=== PATIENT | female | born 1985 | race Two or more races ===

== ENCOUNTER 2016-10-18 14:59 | Emergency (ER) | payer MEDICAID, OTHER ==
[2016-10-18 15:14] VITALS: RESP 16; TEMP 98.4
[2016-10-18] MEDS ORDERED: NS 1,000 ML IV ONE (15:45)
--- NOTE | 2016-10-18 15:49 | EDPHY ---
HPI/HX/ROS/PE/MDM Narrative: CHIEF COMPLAINT: Vaginal bleeding, six weeks . HPI: This is a 31-year-old female 6 weeks by dates (LMP 09/06/2016 ) presenting via private vehicle. She has had vaginal bleeding since last night. She admits associated mild abdominal pain. She denies dizziness, lightheadedness, dysuria, or other complaints. Her other pregnancies were uncomplicated. History obtained via Icelandic speech language pathology assistant at bedside. REVIEW OF SYSTEMS: Aside from elements discussed in the HPI, a comprehensive 10-point review of systems was reviewed and is negative. PMH: Denies. SOCIAL HISTORY: Mother. PHYSICAL EXAM: General:Patient is alert, in no acute distress. ENT:Eyes are normal to inspection. ENT inspection normal. Neck: Normal inspection. Full range of motion. Respiratory:No respiratory distress. Breath sounds normal bilaterally. Cardiovascular: Regular rate and rhythm. Strong peripheral pulses. Normal cap refill. Abdomen:The abdomen is nontender to palpation. There are no peritoneal signs. There are normal bowel sounds. Back: Normal to inspection. No tenderness to palpation. Skin: Normal color. No rash. Warm and dry. Extremities: Normal appearance. Full range of motion. Neuro: Oriented x3. Normal motor function. Normal sensory function. ED Course: An IV was established and labs ordered. Obstetrics ultrasound ordered. Patient's CBC unremarkable. Her beta HCG quantitative is low at 2.39, a negative reading. Study: Obstetrics ultrasound. Indication: Bleeding during . Results: Normal ovaries and uterus. The study was read by the radiologist, Dr. Florence. I viewed the images myself on the PACS system. 1800: Reassessed patient. I informed her she is not . She understands to follow up with her primary care provider this week. I answered all of her questions. She is comfortable with the plan. MDM: This patient presents with vaginal bleeding in the setting of a home test that was positive. Her quantitative beta HCG here in the emergency department is completely negative and ultrasound shows no signs of either. I did this represents delayed presentation of very early spontaneous that is now complete, or more likely, the patient was not actually and this represents her normal menstrual. Either way, she will benefit from outpatient follow-up with her OBGYN. As she is not actually , I do not think RhoGAM is indicated, and the patient is Rh positive regardless. - Data Points Laboratory Results: Laboratory Results 10/18/16 15:55 10/18/16 15:55 10/18/16 10/18/16 10/18/16 15:55 15:55 15:55 WBC 9.02 10^3/uL 10^3/uL (3.80-9.50) RBC 4.46 10^6/uL 10^6/uL (4.18-5.33) Hgb 14.5 g/dL g/dL (12.6-16.3) Hct 42.1 % % (38.0-47.0) MCV 94.4 fL fL (81.5-99.8) MCH 32.5 pg pg (27.9-34.1) MCHC 34.4 g/dL g/dL (32.4-36.7) RDW 12.0 % % (11.5-15.2) Plt Count 264 10^3/uL 10^3/uL (150-400) MPV 10.7 fL fL (8.7-11.7) Neut % (Auto) 65.5 % % (39.3-74.2) Lymph % (Auto) 26.1 % % (15.0-45.0) [place] % (Auto) 5.5 % % (4.5-13.0) Eos % (Auto) 2.3 % % (0.6-7.6) Baso % (Auto) 0.4 % % (0.3-1.7) Nucleat RBC Rel Count 0.0 % % (0.0-0.2) Absolute Neuts (auto) 5.90 10^3/uL 10^3/uL (1.70-6.50) Absolute Lymphs (auto) 2.35 10^3/uL 10^3/uL (1.00-3.00) Absolute Monos (auto) 0.50 10^3/uL 10^3/uL (0.30-0.80) Absolute Eos (auto) 0.21 10^3/uL 10^3/uL (0.03-0.40) Absolute Basos (auto) 0.04 10^3/uL 10^3/uL (0.02-0.10) Absolute Nucleated RBC 0.00 10^3/uL 10^3/uL (0-0.01) Immature Gran % 0.2 % % (0.0-1.1) Immature Gran # 0.02 10^3/uL 10^3/uL (0.00-0.10) Sodium 138 mEq/L mEq/L (134-144) Potassium 3.7 mEq/L mEq/L (3.5-5.2) Chloride 105 mEq/L mEq/L (97-110) Carbon Dioxide 23 mEq/l mEq/l (22-31) Anion Gap 10 mEq/L mEq/L (8-16) BUN 20 mg/dL mg/dL (7-23) Creatinine 0.6 mg/dL mg/dL (0.6-1.0) Estimated GFR > 60 Glucose 102 mg/dL H mg/dL (70-100) Calcium 9.4 mg/dL mg/dL (8.5-10.4) Beta HCG, Quant < 2.39 mIU/mL mIU/mL (0-4.83) Patient ABO/Rh A POSITIVE Medications Given: Discontinued Medications Sodium Chloride (Ns) 1,000 mls @ 0 mls/hr IV ONCE ONE PRN Reason: Wide Open Stop: 10/18/16 15:46 Last Admin: 10/18/16 16:01 Dose: 1,000 mls General Time Seen by Provider: 10/18/16 15:44 Initial Vital Signs: Initial Vital Signs Temperature (C) 36.9 C 10/18/16 15:05 Heart Rate 76 10/18/16 15:05 Respiratory Rate 16 10/18/16 15:05 Blood Pressure 105/64 10/18/16 15:05 O2 Sat (%) 96 10/18/16 15:05 O2 Delivery Mode Room Air Allergies/Adverse Reactions: No Known Allergies Allergy (Verified 10/18/16 15:08) Home Medications: Medication Instructions Recorded NK [No Known Home Meds] 10/18/16 Departure - Departure Disposition: Home, Routine, Self-Care Clinical Impression: Vaginal bleeding Condition: Good Instructions: Dysfunctional Uterine Bleeding (ED) Additional Instructions: Call your primary care provider tomorrow to set up a follow up appointment. Return to the emergency department if you experience serious worsening of condition. Llame a khan proveedor de atencion primaria manana para hacer km randolph de seguimiento. Regrese al departamento de emergencia si experimenta un grave empeoramiento de khan condicion. Referrals: [facility],. [Primary Care Provider] - As per Instructions Print Language: Icelandic Report Scribed for: Medhat Clark Report Scribed by: Pete Dai Date of Report: 10/18/16 Time of Report: 15:49 Physician Review and Approval Statement: Portions of this note were transcribed by a medical consultant. I personally performed a history, physical exam, medical decision making, and confirmed accuracy of information the transcribed note.
[2016-10-18 16:05] LABS: % IMMATURE GRANULYOCYTES 0.2 % (0.0-1.1); ABSOLUTE IMMATURE GRANULOCYTES 0.02 10^3/uL (0.00-0.10); ADD DIFF? NO; ADD MORPH? NO; ADD SCAN? NO; ATYPICAL LYMPHOCYTE FLAG 0 (0-99); FRAGMENT RBC FLAG 0 (0-99); HEMATOCRIT 42.1 % (38.0-47.0); HEMOGLOBIN 14.5 g/dL (12.6-16.3); LEFT SHIFT FLG 0 (0-99); LIPEMIA HEMOLYSIS FLAG 90 (0-99); MEAN CELL HEMOGLOBIN 32.5 pg (27.9-34.1); MEAN CELL HEMOGLOBIN CONCENTR. 34.4 g/dL (32.4-36.7); MEAN CELL VOLUME 94.4 fL (81.5-99.8); MEAN PLATELET VOLUME 10.7 fL (8.7-11.7); PLATELET CLUMPS FLAG 0 (0-99); PLATELET COUNT 264 10^3/uL (150-400); RED BLOOD CELL COUNT 4.46 10^6/uL (4.18-5.33)
[2016-10-18 16:17] LABS: ANION GAP 10 mEq/L (8-16); CALCIUM 9.4 mg/dL (8.5-10.4); CARBON DIOXIDE 23 mEq/l (22-31); CHLORIDE 105 mEq/L (97-110); CREATININE 0.6 mg/dL (0.6-1.0); GLOMERULAR FILTRATION RATE > 60; GLUCOSE 102 mg/dL (70-100); POTASSIUM 3.7 mEq/L (3.5-5.2); SODIUM 138 mEq/L (134-144)
[2016-10-18 18:04] VITALS: BP 107/61; PULSE 73; O2SAT 97
== END 2016-10-18 17:58 | disposition home or self-care (01) ==
DX: O20.8 Other hemorrhage in early pregnancy (principal); Z3A.01 Less than 8 weeks gestation of pregnancy

== ENCOUNTER 2017-04-28 18:15 | Emergency (ER) | payer OTHER ==
[2017-04-28 18:24] VITALS: TEMP 98.1
--- NOTE | 2017-04-28 18:32 | EDPHY ---
H & P Stated Complaint: 14 WK /TODAY HAD EPIGASTRIC PAIN/"EMPTY HOLE" NAUSEA POST EATING TA Time Seen by Provider: 04/28/17 18:25 HPI/ROS: CHIEF COMPLAINT: Epigastric and left upper quadrant abdominal pain, 14 weeks HISTORY OF PRESENT ILLNESS: 31-year-old female currently 14 weeks , followed by [facility] return to services, complaining of 24 hours of left upper quadrant and epigastric discomfort feels "like an empty hole " in this location. States that she feels hungry but also is experiencing nausea. Patient has had ultrasonographic confirmation of intrauterine . No history of IVF. No vomiting. No lower abdominal discomfort. No vaginal bleeding or discharge. No urinary complaints. No back or flank pain. No abdominal or other trauma. No fever or chills. Bowel movements have been normal with no melena or hematochezia. No diarrhea. PRIMARY CARE PROVIDER: the [facility] REVIEW OF SYSTEMS: A ten point review of systems was performed and is negative with the exception of the items mentioned in the HPI PAST MEDICAL & SURGICAL HISTORY: currently 14 weeks SOCIAL HISTORY: nonsmoker PHYSICAL EXAM (Prior to examination, patient consented to physical exam, hands were washed and my usual and customary physical exam procedures followed) 1) GENERAL: Well-developed, well-nourished, alert and oriented. Appears to be in no acute distress. Smiling, shakes my hand 2) HEAD: Normocephalic, atraumatic 3) HEENT: Pupils equal, round, reactive to light bilaterally. Sclera anicteric. Nasopharynx, oropharynx, clear, no lesions. Moist mucous membranes 4) NECK: Full range of motion, no meningeal signs. 5) LUNGS: Clear auscultation bilaterally, no wheezes, no rhonchi, no retractions. 6) HEART: Regular rate and rhythm, no murmur, no heave, no gallop. 7) ABDOMEN: No guarding, tender to palpation epigastrium. negative McBurney's, negative Navarro's, negative Rovsing's, negative peritoneal sign, 8) MUSCULOSKELETAL: Moving all extremities, no focal areas of tenderness, no obvious trauma. No peripheral edema or discoloration. 9) BACK: No CVA tenderness, no midline vertebral tenderness, no fluctuance, no step-off, no obvious trauma, no visual or palpable abnormality. 10) SKIN: No rash, no petechiae. 11) Psychiatric: Patient is oriented X 3, there is no agitation. DIFFERENTIAL DIAGNOSIS: In no particular order, including but not limited to biliary colic, cholecystitis, peptic ulcer disease, pancreatitis, and gastroenteritis. This is a partial list of diagnoses considered. These considerations are based on history, physical exam, past history and reassessment. - Personal History LMP (Females 10-55): Current Tetanus/Diphtheria Vaccine: Yes - Medical/Surgical History Hx Asthma: No Hx Chronic Respiratory Disease: No Hx Diabetes: No Hx Cardiac Disease: No Hx Renal Disease: No Hx Cirrhosis: No Hx Alcoholism: No Hx HIV/AIDS: No Hx Splenectomy or Spleen Trauma: No Other PMH: LMP 09/06/16. - Social History Smoking Status: Never smoked Constitutional: Initial Vital Signs Temperature (C) 36.7 C 04/28/17 18:19 Heart Rate 92 04/28/17 18:19 Respiratory Rate 18 04/28/17 18:19 Blood Pressure 119/65 04/28/17 18:19 O2 Sat (%) 98 04/28/17 18:19 O2 Delivery Mode Room Air Allergies/Adverse Reactions: No Known Allergies Allergy (Verified 04/28/17 18:19) Home Medications: Medication Instructions Recorded Famotidine [Pepcid] 40 mg PO Q6 #30 tablet 04/28/17 04/28/17 Medical Decision Making - Diagnostics Imaging Results: Imaging Impressions Obstetrics Ultrasound 04/28/17 18:33 Impression: 1. Viable intrauterine gestation in transverse lie at 15 weeks 1 day. Size is consistent with dates. 2. Normal visualized anatomy. 3. Marginal placenta previa. This should be followed to ensure superior migration as the uterus gross in size. Results called and discussed with Hue Cordoba at 04/28/2017 20:04 Imaging: Discussed imaging studies w/ weight caller Radiologist ED Course/Re-evaluation: 8:24 p.m.: Patient re-evaluated, she is feeling improvement after GI cocktail states that she is "totally better ". Re-evaluated her abdomen which remained soft no guarding no McBurney's point pain negative Navarro's, still mildly tender to palpation midline epigastrium. Doubt acute pancreatitis. Doubt acute appendicitis in the absence of right lower quadrant abdominal pain. We reviewed her diagnostic studies including her - Data Points Laboratory Results: Laboratory Results 04/28/17 18:37 04/28/17 18:37 04/28/17 04/28/17 04/28/17 18:37 18:37 18:35 WBC 10.55 10^3/uL H 10^3/uL (3.80-9.50) RBC 4.28 10^6/uL 10^6/uL (4.18-5.33) Hgb 14.0 g/dL g/dL (12.6-16.3) Hct 39.7 % % (38.0-47.0) MCV 92.8 fL fL (81.5-99.8) MCH 32.7 pg pg (27.9-34.1) MCHC 35.3 g/dL g/dL (32.4-36.7) RDW 12.4 % % (11.5-15.2) Plt Count 241 10^3/uL 10^3/uL (150-400) MPV 10.9 fL fL (8.7-11.7) Neut % (Auto) 73.4 % % (39.3-74.2) Lymph % (Auto) 17.1 % % (15.0-45.0) [place] % (Auto) 6.6 % % (4.5-13.0) Eos % (Auto) 2.3 % % (0.6-7.6) Baso % (Auto) 0.2 % L % (0.3-1.7) Nucleat RBC Rel Count 0.0 % % (0.0-0.2) Absolute Neuts (auto) 7.75 10^3/uL H 10^3/uL (1.70-6.50) Absolute Lymphs (auto) 1.80 10^3/uL 10^3/uL (1.00-3.00) Absolute Monos (auto) 0.70 10^3/uL 10^3/uL (0.30-0.80) Absolute Eos (auto) 0.24 10^3/uL 10^3/uL (0.03-0.40) Absolute Basos (auto) 0.02 10^3/uL 10^3/uL (0.02-0.10) Absolute Nucleated RBC 0.00 10^3/uL 10^3/uL (0-0.01) Immature Gran % 0.4 % % (0.0-1.1) Immature Gran # 0.04 10^3/uL 10^3/uL (0.00-0.10) Sodium 135 mEq/L mEq/L (134-144) Potassium 4.0 mEq/L mEq/L (3.5-5.2) Chloride 101 mEq/L mEq/L (97-110) Carbon Dioxide 21 mEq/l L mEq/l (22-31) Anion Gap 13 mEq/L mEq/L (8-16) BUN 12 mg/dL mg/dL (7-23) Creatinine 0.6 mg/dL mg/dL (0.6-1.0) Estimated GFR > 60 Glucose 74 mg/dL mg/dL (70-100) Calcium 9.7 mg/dL mg/dL (8.5-10.4) Total Bilirubin 0.7 mg/dL mg/dL (0.1-1.4) Conjugated Bilirubin 0.1 mg/dL mg/dL (0.0-0.5) Unconjugated Bilirubin 0.6 mg/dL mg/dL (0.0-1.1) AST 23 IU/L IU/L (14-46) ALT 29 IU/L IU/L (9-52) Alkaline Phosphatase 47 IU/L IU/L (38-126) Total Protein 7.5 g/dL g/dL (6.3-8.2) Albumin 4.2 g/dL g/dL (3.5-5.0) Lipase 132 IU/L IU/L (23-300) Beta HCG, Quant 03264.00 mIU/mL H mIU/mL (0.00-4.83) Urine Color YELLOW Urine Appearance HAZY Urine pH 6.0 (5.0-7.5) Ur Specific [place] 1.019 (1.002-1.030) Urine Protein NEGATIVE (NEGATIVE) Urine Ketones NEGATIVE (NEGATIVE) Urine Blood 1+ H (NEGATIVE) Urine Nitrate NEGATIVE (NEGATIVE) Urine Bilirubin NEGATIVE (NEGATIVE) Urine Urobilinogen NEGATIVE EU EU (0.2-1.0) Ur Leukocyte Esterase NEGATIVE (NEGATIVE) Urine RBC 5-10 /hpf H /hpf (0-3) Urine WBC 1-3 /hpf /hpf (0-3) Ur Epithelial Cells TRACE /lpf /lpf (NONE-1+) Urine Mucus TRACE /lpf /lpf (NONE-1+) Urine Glucose NEGATIVE (NEGATIVE) Medications Given: Discontinued Medications Al Hydroxide/Mg Hydroxide (Maalox Susp) 30 ml PO ONCE ONE Stop: 04/28/17 19:15 Last Admin: 04/28/17 19:25 Dose: 30 ml Hyoscyamine Sulfate (Levsin, Hyomax-Sl) 0.25 mg PO ONCE ONE Stop: 04/28/17 19:15 Last Admin: 04/28/17 19:26 Dose: 0.25 mg Lidocaine (Lidocaine 2% Viscous) 15 ml PO ONCE ONE Stop: 04/28/17 19:15 Last Admin: 04/28/17 19:26 Dose: 15 ml Departure - Departure Disposition: Home, Routine, Self-Care Clinical Impression: Epigastric abdominal pain Condition: Good Instructions: Epigastric Pain (ED) Additional Instructions: Return to the emergency department immediately if you develop lower abdominal pain, if you develop nausea or vomiting, vaginal bleeding or any other symptoms that concern you. Volver al servicio de urgencias inmediatamente si desarrolla dolor abdominal m s bajo, si se presentan nuseas o vmitos, sangrado vaginal o cualquier otro s ntoma que le conciernen. [facility]errals: [facility] [Other] - 1 day without fail Prescriptions: Famotidine [Pepcid] 40 mg PO Q6 #30 tablet Print Language: Slovak
[2017-04-28 18:43] LABS: COLOR YELLOW; LEUKOCYTE ESTERASE,URINE NEGATIVE (NEGATIVE); NITRITE,URINE NEGATIVE (NEGATIVE)
[2017-04-28 18:46] LABS: MUCUS TRACE /lpf (NONE-1+)
[2017-04-28 18:47] LABS: % IMMATURE GRANULYOCYTES 0.4 % (0.0-1.1); ABSOLUTE IMMATURE GRANULOCYTES 0.04 10^3/uL (0.00-0.10); ADD DIFF? NO; ADD MORPH? NO; ADD SCAN? NO; ATYPICAL LYMPHOCYTE FLAG 0 (0-99); FRAGMENT RBC FLAG 0 (0-99); HEMATOCRIT 39.7 % (38.0-47.0); LEFT SHIFT FLG 0 (0-99); LIPEMIA HEMOLYSIS FLAG 90 (0-99); MEAN CELL HEMOGLOBIN 32.7 pg (27.9-34.1); MEAN CELL HEMOGLOBIN CONCENTR. 35.3 g/dL (32.4-36.7); MEAN CELL VOLUME 92.8 fL (81.5-99.8); MEAN PLATELET VOLUME 10.9 fL (8.7-11.7); PLATELET CLUMPS FLAG 0 (0-99); PLATELET COUNT 241 10^3/uL (150-400); RED BLOOD CELL COUNT 4.28 10^6/uL (4.18-5.33); RED CELL DISTRIBUTION WIDTH 12.4 % (11.5-15.2)
[2017-04-28 18:59] LABS: ALANINE AMINOTRANSFERASE 29 IU/L (9-52); ALBUMIN 4.2 g/dL (3.5-5.0); ALKALINE PHOSPHATASE 47 IU/L (38-126); ANION GAP 13 mEq/L (8-16); ASPARTATE AMINOTRANSFERASE 23 IU/L (14-46); BILIRUBIN,TOTAL 0.7 mg/dL (0.1-1.4); BILIRUBIN-CONJUGATED 0.1 mg/dL (0.0-0.5); BILIRUBIN-UNCONJUGATED 0.6 mg/dL (0.0-1.1); CALCIUM 9.7 mg/dL (8.5-10.4); CARBON DIOXIDE 21 mEq/l (22-31); CHLORIDE 101 mEq/L (97-110); CREATININE 0.6 mg/dL (0.6-1.0); GLOMERULAR FILTRATION RATE > 60; GLUCOSE 74 mg/dL (70-100); SODIUM 135 mEq/L (134-144); TOTAL PROTEIN 7.5 g/dL (6.3-8.2)
[2017-04-28] MEDS ORDERED: MAG HYDROX/AL HYDROX/SIMETH 30 ML UDCUP PO ONE (19:14)
[2017-04-28] MEDS ORDERED: LIDOCAINE 2% VISCOUS 15 ML UDCUP PO ONE (19:14)
[2017-04-28] MEDS ORDERED: HYOSCYAMINE SULFATE 0.125 MG TAB PO ONE (19:14)
[2017-04-28 20:53] VITALS: BP 98/62; PULSE 75; RESP 16; O2SAT 96
== END 2017-04-28 20:52 | disposition home or self-care (01) ==
DX: O26.892 Other specified pregnancy related conditions, second trimester (principal); R10.13 Epigastric pain; Z3A.15 15 weeks gestation of pregnancy

== ENCOUNTER 2018-04-24 19:46 | Observation (INO) | payer MEDICAID, OTHER ==
--- NOTE | 2018-04-24 20:33 | EDPHY ---
H & P Stated Complaint: lower abd pain x 16 hr Time Seen by Provider: 04/24/18 20:18 HPI/ROS: CHIEF COMPLAINT: Lower abdominal pain since this morning HISTORY OF PRESENT ILLNESS: 32-year-old female complaining of lower abdominal pain since this morning with no nausea or vomiting. No fever or chills. No radiation pain. No trauma. No dysuria no hematuria increased frequency. Currently on her menstrual period, started spotting a few days ago. REVIEW OF SYSTEMS: A ten point review of systems was performed and is negative with the exception of the items mentioned in the HPI PAST MEDICAL & SURGICAL HISTORY: No history of abdominal surgeries. 6 months . IUD in place place 2 months ago. SOCIAL HISTORY:Nonsmoker PHYSICAL EXAM (Prior to examination, patient consented to physical exam, hands were washed and my usual and customary physical exam procedures followed) 1) GENERAL: Well-developed, well-nourished, alert and oriented. Appears to be in no acute distress. 2) HEAD: Normocephalic, atraumatic 3) HEENT: Pupils equal, round, reactive to light bilaterally. Sclera anicteric. Nasopharynx, oropharynx, clear, no lesions. Moist Mucous membranes. Ears bilaterally with normal tympanic membranes. 4) NECK: Full range of motion, no meningeal signs. 5) LUNGS: Clear auscultation bilaterally, no wheezes, no rhonchi, no retractions. 6) HEART: Regular rate and rhythm, no murmur, no heave, no gallop. 7) ABDOMEN: No guarding, tender to palpation suprapubic region, negative McBurney's, negative Navarro's, negative Rovsing's, negative peritoneal sign, 8) MUSCULOSKELETAL: Moving all extremities, no focal areas of tenderness, no obvious trauma. No peripheral edema or discoloration. 9) BACK: No CVA tenderness, no midline vertebral tenderness, no fluctuance, no step-off, no obvious trauma, no visual or palpable abnormality. 10) SKIN: No rash, no petechiae. 11) Psychiatric: Patient is oriented X 3, there is no agitation. DIFFERENTIAL DIAGNOSIS: My differential diagnosis includes, but is not limited to, acute appendicitis, acute cholecystitis, bowel obstruction, acute pancreatitis, ovarian torsion, ectopic , gastritis and urinary tract infection. The patient understands that this diagnosis is provisional and can never be 100% accurate. This is a partial list of diagnoses considered. These considerations are based on history, physical exam, past history and reassessment. - Personal History LMP (Females 10-55): Now Current Tetanus/Diphtheria Vaccine: Yes Current Tetanus Diphtheria and Acellular Pertussis (TDAP): Yes - Medical/Surgical History Hx Asthma: No Hx Chronic Respiratory Disease: No Hx Diabetes: No Hx Cardiac Disease: No Hx Renal Disease: No Hx Cirrhosis: No Hx Alcoholism: No Hx HIV/AIDS: No Hx Splenectomy or Spleen Trauma: No Other PMH: LMP 09/06/16. - Social History Smoking Status: Never smoked Constitutional: Initial Vital Signs Temperature (C) 36.7 C 04/24/18 19:55 Heart Rate 83 04/24/18 19:55 Respiratory Rate 18 04/24/18 19:55 Blood Pressure 90/61 L 04/24/18 19:55 O2 Sat (%) 95 04/24/18 19:55 O2 Delivery Mode Room Air Allergies/Adverse Reactions: No Known Allergies Allergy (Verified 04/28/17 18:19) Home Medications: Medication Instructions Recorded 04/28/17 Medical Decision Making - Diagnostics Imaging Results: Imaging Impressions Abdomen Ultrasound 04/24/18 20:33 Impression: Nonvisualization of the appendix. Prominent free fluid. 2. OB Sonogram, Early, 9:22 PM History: Abdominal and pelvic pain Technique: Transabdominal and transvaginal scanning is performed. Transvaginal scanning is added to better evaluate the intrauterine contents and adnexa. Spectral and color Doppler analysis is performed to evaluate the ovaries for torsion or vascular masses. Findings: There is a moderate amount of free fluid in the pelvis. Fluid has low level echoes within it, possibly representing hemorrhage. There is an IUD in the endometrial cavity. There is a tiny endometrial cyst. There is a complex left adnexal mass measuring 8 x 7.5 x 7.5 cm. This mass has relatively increased internal vascularity with a low resistance. The right ovary is normal and unremarkable with normal blood flow.. Impression: Suspicious for a left ectopic , possibly ruptured. Results discussed with Yaya Cordoba at 10:00 PM. Obstetrics Ultrasound 04/24/18 20:33 Impression: Nonvisualization of the appendix. Prominent free fluid. 2. OB Sonogram, Early, 9:22 PM History: Abdominal and pelvic pain Technique: Transabdominal and transvaginal scanning is performed. Transvaginal scanning is added to better evaluate the intrauterine contents and adnexa. Spectral and color Doppler analysis is performed to evaluate the ovaries for torsion or vascular masses. Findings: There is a moderate amount of free fluid in the pelvis. Fluid has low level echoes within it, possibly representing hemorrhage. There is an IUD in the endometrial cavity. There is a tiny endometrial cyst. There is a complex left adnexal mass measuring 8 x 7.5 x 7.5 cm. This mass has relatively increased internal vascularity with a low resistance. The right ovary is normal and unremarkable with normal blood flow.. Impression: Suspicious for a left ectopic , possibly ruptured. Results discussed with Yaya Cordoba at 10:00 PM. ED Course/Re-evaluation: 8:30 p.m.: Focal tenderness to palpation lower abdomen. Will obtain diagnostic studies. I saw this patient independently based on established practice protocols. Care of patient under supervision of secondary supervising physician Dr Chau woman with whom I discussed case 9:40 p.m.: Patient's test is positive. Will obtain quantitative HCG. She last ate at 5:00 p.m.. . 10:03 p.m.: Phone call from radiologist at this time, more than likely ruptured ectopic . Will contact OBGYN 10:12 p.m.: Consultation Dr. Bere Haskins who will will come to the hospital to evaluate patient 10:31 p.m.: Dr. Haskins in the ER to evaluate patient - Data Points Laboratory Results: Laboratory Results 04/24/18 20:17 04/24/18 20:17 04/24/18 04/24/18 04/24/18 20:20 20:17 20:17 WBC RBC Hgb Hct MCV MCH MCHC RDW Plt Count MPV Neut % (Auto) Lymph % (Auto) [place] % (Auto) Eos % (Auto) Baso % (Auto) Nucleat RBC Rel Count Absolute Neuts (auto) Absolute Lymphs (auto) Absolute Monos (auto) Absolute Eos (auto) Absolute Basos (auto) Absolute Nucleated RBC Immature Gran % Immature Gran # PT 12.6 SEC SEC (12.0-15.0) INR 0.92 (0.83-1.16) APTT 25.2 SEC SEC (23.0-38.0) Sodium Potassium Chloride Carbon Dioxide Anion Gap BUN Creatinine Estimated GFR Glucose Calcium Total Bilirubin Conjugated Bilirubin Unconjugated Bilirubin AST ALT Alkaline Phosphatase Total Protein Albumin Lipase Beta HCG, Qual Beta HCG, Quant 785.45 mIU/mL H mIU/mL (0.00-4.83) Urine Color YELLOW Urine Appearance TURBID Urine pH 5.0 (5.0-7.5) Ur Specific [place] > 1.035 H (1.002-1.030) Urine Protein 2+ H (NEGATIVE) Urine Ketones NEGATIVE (NEGATIVE) Urine Blood 3+ H (NEGATIVE) Urine Nitrate NEGATIVE (NEGATIVE) Urine Bilirubin NEGATIVE (NEGATIVE) Urine Urobilinogen 2.0 EU H EU (0.2-1.0) Ur Leukocyte Esterase NEGATIVE (NEGATIVE) Urine RBC 25-50 /hpf H /hpf (0-3) Urine WBC 3-5 /hpf H /hpf (0-3) Ur Epithelial Cells 2+ /lpf H /lpf (NONE-1+) Urine Mucus 4+ /lpf H /lpf (NONE-1+) Urine Glucose NEGATIVE (NEGATIVE) 04/24/18 04/24/18 04/24/18 20:17 20:17 20:17 WBC 9.58 10^3/uL H 10^3/uL (3.80-9.50) RBC 3.98 10^6/uL L 10^6/uL (4.18-5.33) Hgb 12.6 g/dL g/dL (12.6-16.3) Hct 36.9 % L % (38.0-47.0) MCV 92.7 fL fL (81.5-99.8) MCH 31.7 pg pg (27.9-34.1) MCHC 34.1 g/dL g/dL (32.4-36.7) RDW 12.4 % % (11.5-15.2) Plt Count 241 10^3/uL 10^3/uL (150-400) MPV 10.6 fL fL (8.7-11.7) Neut % (Auto) 68.9 % % (39.3-74.2) Lymph % (Auto) 20.7 % % (15.0-45.0) [place] % (Auto) 7.7 % % (4.5-13.0) Eos % (Auto) 2.1 % % (0.6-7.6) Baso % (Auto) 0.3 % % (0.3-1.7) Nucleat RBC Rel Count 0.0 % % (0.0-0.2) Absolute Neuts (auto) 6.60 10^3/uL H 10^3/uL (1.70-6.50) Absolute Lymphs (auto) 1.98 10^3/uL 10^3/uL (1.00-3.00) Absolute Monos (auto) 0.74 10^3/uL 10^3/uL (0.30-0.80) Absolute Eos (auto) 0.20 10^3/uL 10^3/uL (0.03-0.40) Absolute Basos (auto) 0.03 10^3/uL 10^3/uL (0.02-0.10) Absolute Nucleated RBC 0.00 10^3/uL 10^3/uL (0-0.01) Immature Gran % 0.3 % % (0.0-1.1) Immature Gran # 0.03 10^3/uL 10^3/uL (0.00-0.10) PT INR APTT Sodium 140 mEq/L mEq/L (135-145) Potassium 3.8 mEq/L mEq/L (3.3-5.0) Chloride 107 mEq/L mEq/L (97-110) Carbon Dioxide 22 mEq/l mEq/l (22-31) Anion Gap 11 mEq/L mEq/L (8-16) BUN 16 mg/dL mg/dL (7-23) Creatinine 0.6 mg/dL mg/dL (0.6-1.0) Estimated GFR > 60 Glucose 118 mg/dL H mg/dL (70-100) Calcium 8.9 mg/dL mg/dL (8.5-10.4) Total Bilirubin 1.5 mg/dL H mg/dL (0.1-1.4) Conjugated Bilirubin 0.0 mg/dL mg/dL (0.0-0.5) Unconjugated Bilirubin 1.5 mg/dL H mg/dL (0.0-1.1) AST 20 IU/L IU/L (14-46) ALT 25 IU/L IU/L (9-52) Alkaline Phosphatase 63 IU/L IU/L (38-126) Total Protein 6.7 g/dL g/dL (6.3-8.2) Albumin 4.0 g/dL g/dL (3.5-5.0) Lipase 95 IU/L IU/L (23-300) Beta HCG, Qual POSITIVE Beta HCG, Quant Urine Color Urine Appearance Urine pH Ur Specific [place] Urine Protein Urine Ketones Urine Blood Urine Nitrate Urine Bilirubin Urine Urobilinogen Ur Leukocyte Esterase Urine RBC Urine WBC Ur Epithelial Cells Urine Mucus Urine Glucose Medications Given: Discontinued Medications Sodium Chloride (Ns) 1,000 mls @ 0 mls/hr IV ONCE ONE PRN Reason: Wide Open Stop: 04/24/18 22:17 Last Admin: 04/24/18 22:19 Dose: 1,000 mls Morphine Sulfate (Morphine) 4 mg IVP EDNOW ONE Stop: 04/24/18 22:17 Last Admin: 04/24/18 22:19 Dose: 4 mg Departure - Departure Disposition: [facility] Inpatient Acute Clinical Impression: Ectopic Qualifiers: Location of ectopic : tubal Intrauterine status: without intrauterine Laterality: left Qualified Code(s): O00.102 - Left tubal without intrauterine Condition: Fair
[2018-04-24 20:39] LABS: PLATELET COUNT 241 10^3/uL (150-400)
[2018-04-24] MEDS ORDERED: NS 1,000 ML IV ONE (22:16)
[2018-04-24 22:25] LABS: INR 0.92 (0.83-1.16); PROTIME(PATIENT) 12.6 SEC (12.0-15.0)
[2018-04-24] MEDS ORDERED: ALBUTEROL 3 ML DEYVIAL IH PRN (23:06)
[2018-04-24] MEDS ORDERED: ONDANSETRON 4 MG/2 ML VIAL IVP PRN (23:06)
[2018-04-24] MEDS ORDERED: HYDROmorphONE/DILAUDID 1 MG/ML INJ IVP PRN (23:06)
[2018-04-24] MEDS ORDERED: NALOXONE HCL 0.4 MG/ML INJ IVP PRN (23:06)
[2018-04-24] MEDS ORDERED: NS 500 ML IV PRN (23:06)
[2018-04-24] MEDS ORDERED: DEXAMETHASONE 4 MG/ML VIAL IVP PRN (23:06)
[2018-04-24] MEDS ORDERED: fentaNYL 100 MCG/2 ML INJ IVP PRN (23:06)
--- NOTE | 2018-04-24 23:06 | PDANEPAE ---
ANE History of Present Illness here for ruptured ectopic ANE Past Medical History - Cardiovascular History Hx Hypertension: No Hx Arrhythmias: No Hx Chest Pain: No Hx Coronary Artery / Peripheral Vascular Disease: No Hx CHF / Valvular Disease: No Hx Palpitations: No - Pulmonary History Hx COPD: No Hx Asthma/Reactive Airway Disease: No Hx Recent Upper Respiratory Infection: No Hx Oxygen in Use at Home: No Hx Sleep Apnea: No - Endocrine History Hx Diabetes: No Hypothyroid: No Hyperthyroid: No Obesity: no - Renal History Hx Renal Disorders: No - Liver History Hx Hepatic Disorders: No ANE Review of Systems Review of systems is: negative Review of Systems: - Exercise capacity Exercise capacity: >=4 METS ANE Patient History - Allergies Allergies/Adverse Reactions: No Known Allergies Allergy (Verified 04/28/17 18:19) - Home Medications Home medications: home medication list seen and reviewed Home Medications: 04/28/17 [Last Taken Unknown] - NPO status NPO Since - Liquids (Date): 04/24/18 NPO Since - Liquids (Time): 17:00 NPO Since - Solids (Date): 04/24/18 NPO Since - Solids (Time): 17:00 - Smoking Hx Smoking Status: Never smoked ANE Labs/Vital Signs - Labs Result Diagrams: 04/24/18 20:17 04/24/18 20:17 - Vital Signs Vital Signs: reviewed preoperatively; see RN documention for details Blood Pressure: 114/67 Heart Rate: 96 Respiratory Rate: 16 O2 Sat (%): 97 Height: 157.48 cm Weight: 59.421 kg ANE Physical Exam - Airway Neck exam: FROM Mallampati Score: Class 1 - Pulmonary Pulmonary: no respiratory distress - Cardiovascular Cardiovascular: regular rate and rhythym - ASA Status ASA Status: I, E ANE Anesthesia Plan Anesthesia Plan: general endotracheal anesthesia
[2018-04-24] MEDS ORDERED: ceFAZolin 2 GM/DEXTROSE 100 ML IV ONE (23:10)
[2018-04-24] MEDS ORDERED: PROPOFOL 200 MG/20 ML VIAL ONE (23:17)
[2018-04-24] MEDS ORDERED: fentaNYL 100 MCG/2 ML INJ ONE (23:20)
[2018-04-24] MEDS ORDERED: BUPIVACAINE/EPI 0.5% 30 ML SDV ONE (23:32)
[2018-04-24] MEDS ORDERED: PHENYLEPHRINE HCL 100 MCG/ML SYR ONE (23:44)
--- NOTE | 2018-04-24 23:58 | GHP ---
[f rep st] PREOP HISTORY AND PHYSICAL DATE OF ADMISSION: 04/24/2018 PREOPERATIVE HISTORY: The patient is a 32-year-old, G 4, P 3, who was identified to have suspicion f or a ruptured left ectopic. The patient presented to the emergency room on the evening of 04/24 afte r a day of increasing pain in the lower abdomen. The patient reports irregular periods with 2 weeks of brownish bleeding and increase to more menstrual like flow 4 days ago. The patient is 6 months po stpartum and had an IUD placed approximately 2 months ago. The patient is still breast-feeding her 6 -month-old regularly. Upon presentation to the ER, the patient was found to have a positive urine pr egnancy test with an HCG level of 785. Ultrasound revealed that an IUD is present in the endometrial cavity and otherwise it is an empty cavity. There is abundant free fluid with a left adnexal comple x mass 8 x 7 x 7 cm. The patient has received IV morphine at the time I consulted with her. PAST MEDICAL HISTORY: Negative. PAST SURGICAL HISTORY: Negative. PAST OBSTETRIC HISTORY: Three spontaneous vaginal deliveries at term. Patient has 13 and 12-year-ol d female children and a 6-month-old male. ALLERGIES: The patient has no known drug allergies. CURRENT MEDICATIONS: Only vitamins. SOCIAL HISTORY: The patient is a nonsmoker. Denies any marijuana or alcohol use. PHYSICAL EXAM: GENERAL: The patient is a well-developed, well-nourished, speaking female i n no obvious distress at this time with morphine on board. VITAL SIGNS: Blood pressure is 90s to 11 0s over 60s with temp 36.7, and heart rate in the 90s. LUNGS: Clear to auscultation bilaterally. C ARDIOVASCULAR: Regular rate and rhythm. HEENT: Oropharynx is clear. ABDOMEN: Mildly distended. Generalized tenderness. PELVIC: Deferred. EXTREMITIES: Nontender. LABORATORY DATA: Normal white count of 9.5, H and H of 12 and 36, and platelets of 241,000. PT and PTT were normal. Complete metabolic panel within normal limits. HCG is 785. Blood type pending. ASSESSMENT: Suspicion for a ruptured left ectopic with hemoperitoneum. IUD in place. PLAN: The patient is interviewed and counseled as to the need for laparoscopic surgery. The entire discussion is had with the patient with the assistance of a rotor coil taper. The patient is allo wed to ask questions and the consent form for laparoscopic left salpingectomy is reviewed with the jena robert and the consent form signed. Consent for blood if needed was also obtained. 35 minutes was sp ent [id number] with the patient in preparation before going to the operating room. /[id number]/MODL
[2018-04-25] MEDS ORDERED: PROPOFOL 200 MG/20 ML VIAL ONE (00:16)
[2018-04-25] MEDS ORDERED: fentaNYL 100 MCG/2 ML INJ ONE ×2 (00:28→00:57)
[2018-04-25] MEDS ORDERED: GLYCOPYRROLATE 0.2 MG/1 ML VIAL ONE ×2 (00:38)
[2018-04-25] MEDS ORDERED: KETOROLAC 30 MG/1 ML SDV ONE (00:40)
--- NOTE | 2018-04-25 00:57 | POSTANESTH ---
Post Anesthetic Evaluation Cardiovascular Status: Normal, Stable Respiratory Status: Normal, Stable Level of Consciousness/Mental Status: Mildly Sleepy, Arousable Pain Control: Adequate, Prn Tx Ordered Nausea/Vomiting Control: Adequate, Prn Tx Ordered Complications Possibly Related to Anesthesia: None Noted
--- NOTE | 2018-04-25 01:03 | POSTOPPROG ---
Post Op Note Date of Operation: 04/25/18 Surgeon: Bere Haskins Anesthesiologist: Janes Caldwell MD Anesthesia: GET(General Endotracheal) Pre-op Diagnosis: ruptured left ectopic Post-op Diagnosis: same Indication: Acute pain all day, HCG of 785, IUD in place, FF and 8x8 cm mass left Procedure: LSC left salpingectomy Findings: hemoperitoneum approx 500 ml, active bld from left fimbria,nl R tube/ ov Inf/Abcess present in the surg proc area at time of surgery?: No Depth: Organ Space EBL: Minimal Complications: none Specimen(s): left tube
[2018-04-25] MEDS: oxyCODONE IR 5 MG TAB PO PRN ×3 (01:32→11:19)
[2018-04-25] MEDS: ACETAMINOPHEN 500 MG TAB PO PRN ×2 (02:29→09:56)
[2018-04-25] MEDS: IBUPROFEN 600 MG TAB PO SCH ×2 (06:17→12:57)
[2018-04-25] MEDS ORDERED: DOCUSATE SODIUM 100 MG CAP PO SCH (09:00)
[2018-04-25] MEDS: ONDANSETRON DISINTEGRATING 4 MG TAB PO PRN ×2 (09:56→13:53)
--- NOTE | 2018-04-25 10:59 | SOAPPROG ---
SOAP Progress Note Assessment/Plan: Assessment: POD 1/2 s/p LSC left salpingectomy for left ectopic mild nausea this am Plan: D/C home this am, OxyIR prn for pain, cont ibu. RTC 2 wks 04/25/18 10:54 Subjective: Pt doing fine. Reports less pain than yesterday. pain better with oxyIR. rec to cont ibu at home. Pt wonders how far preg she was --I told her it was too small to be visible. Bld minimal.. urinating fine. Ready for d/c Objective: Vital Signs Temp Pulse Resp BP Pulse Ox 36.6 C 95 16 98/59 L 96 04/25/18 04:28 04/25/18 04:28 04/25/18 04:28 04/25/18 04:28 04/25/18 04:28 04/24/18 04/25/18 04/26/18 05:59 05:59 05:59 Intake Total 2024 Output Total Balance 2019 PT 12.6 SEC (12.0-15.0) 04/24/18 20:17 INR 0.92 (0.83-1.16) 04/24/18 20:17 Physical Exam - Physical Exam General Appearance: WD/WN, alert Abdomen: non-tender (mild post op pain - approp), soft, other (incisions x3 - no sign of erythema under bandaides.) Skin: normal color, warm/dry Neuro/Psych: alert, normal mood/affect ICD10 Worksheet Patient Problems: Problems Problem Status Onset Ectopic Acute S/P laparoscopic surgery Acute salpingectomy, left Acute
[2018-04-25 15:16] VITALS: BP 108/57
== END 2018-04-25 14:30 | disposition home or self-care (01) ==
LOC: FOB 04-25 01:20
PROVIDERS: ADMIT Obstetrics & Gynecology; ATTEND Obstetrics & Gynecology
PROC: 0UT64ZZ Resection of Left Fallopian Tube, Percutaneous Endoscopic Approach (ICD-10-PCS; principal; 2018-04-24 23:45)
DX: O00.102 Left tubal pregnancy without intrauterine pregnancy (principal)
CPT/HCPCS: 96374; G0378; J1885; J2270; J2370; J2704; J3010